=== PATIENT | female | born 1965 | race Caucasian/White ===

== ENCOUNTER 2016-05-12 07:09 | Day surgery (SDC) | payer OTHER ==
[2016-05-10 11:08] VITALS: BMI 42.5
[~2016-05-12 07:09] MED LIST: LACTATED RINGERS 1,000 ML IV SCH
[2016-05-12 07:26] VITALS: TEMP 97.1
[2016-05-12] MEDS ORDERED: GLYCOPYRROLATE 0.2 MG/ML 2 ML VIAL ONE (08:32)
[2016-05-12] MEDS ORDERED: PROPOFOL 10 MG/ML 20 ML VIAL IV ONE (08:32)
[2016-05-12] MEDS ORDERED: LIDOCAINE 1% INJ 10MG/ML (20 ML MDV) ONE (08:32)
[2016-05-12 09:13] VITALS: RESP 18
--- NOTE | 2016-05-12 09:15 | P.PCN ---
Date of Procedure: 05/12/16 Procedure(s) Performed: Procedures: 1. Esophagogastroduodenoscopy and biopsy. 2. Total colonoscopy. Preoperative diagnosis: Abdominal pain, change in bowel habits and episodes of diverticulitis in February of last year. Postoperative diagnosis: 1. Hiatal hernia and low-grade distal esophagitis. 2. Mild gastritis and duodenitis. 3. Diffuse diverticulosis. Preparation: HalfLytely prep. Sedation: Was provided by anesthesia. Brief clinical history: The patient is a 50-year-old female who I have evaluated in the office last month after a recent bout of diverticulitis demonstrated on CT that she had in the emergency room in February 2016. The patient was already done with her antibiotics but was still in pain and her bowel movements were changing constantly. She reported that she has had pains for almost a year and missed lots of water. This evaluation is to assess for complicated diverticular disease or other pathology. Procedure: With the patient on her left lateral decubitus position and after informed consent and adequate sedation, I passed the Olympus-GIF 160 video upper endoscope through the cricopharyngeus down the esophagus. GE junction was around 36 cm from the incisors and there was a small sliding hiatal hernia. The esophagus showed a short linear erosion or 2 terminating at the GE junction consistent with low-grade distal esophagitis. There were no strictures or Marcum's esophagus or any ulcers or other findings. The endoscope was then passed into the stomach which was insufflated with air and inspected in detail including the retroflex view in the cardia. Finally, the endoscope was passed through the pylorus into the duodenum. There were no pyloric channel ulcers or duodenal ulcers. Both the stomach and duodenum showed some mottling and erythema consistent with mild gastritis and duodenitis. I obtained multiple biopsies from the duodenum, antrum and esophagus then the endoscope was withdrawn and I proceeded with the colonoscopy. Perianal area did not show any fissures or fistulas. There were no masses felt on digital rectal examination. The Olympus CFQ 160L video colonoscope was then inserted in the rectum in the usual fashion and advanced to the cecum. There was diffuse diverticulosis noted but the mucosa otherwise appeared healthy. There was no strictures. No polyps or tumors were seen or other pathology. I retroflexed the endoscope in the rectum before the endoscope was withdrawn. Low -grade internal hemorrhoids were noted but there was no bleeding. The patient tolerated the procedure well. Plan: The patient was reassured. Discussed dietary measures. Further plans will be made based on her course and biopsy results. I will keep you updated on her progress.
[2016-05-12 09:31] VITALS: BP 120/73; PULSE 69
== END 2016-05-12 10:01 | disposition home or self-care (01) ==
LOC: ORWHC2ENDO 07:09
DX: K29.50 Unspecified chronic gastritis without bleeding (principal); K29.80 Duodenitis without bleeding; K20.0 Eosinophilic esophagitis; K44.9 Diaphragmatic hernia without obstruction or gangrene; K57.30 Diverticulosis of large intestine without perforation or abscess without bleeding; K64.8 Other hemorrhoids; J45.909 Unspecified asthma, uncomplicated; Z79.899 Other long term (current) drug therapy; Z88.5 Allergy status to narcotic agent
CPT/HCPCS: 81025; 88305; 88342; 45378; 43239; J2001; J2704; 99153

== ENCOUNTER 2016-05-18 12:37 | Emergency (ER) | payer OTHER ==
[2016-05-18 12:43] VITALS: TEMP 99
[2016-05-18] MEDS ORDERED: HYDROmorphone 1 MG/ML 1 ML SYRINGE IVP STA (13:05)
[2016-05-18] MEDS ORDERED: SODIUM CHLORIDE 0.9% 1,000 ML IV STA (13:05)
[2016-05-18] MEDS ORDERED: ONDANSETRON 4 MG/2 ML VIAL IVP STA (13:05)
[2016-05-18] MEDS ORDERED: KETOROLAC 30 MG/ML 1 ML VIAL IVP STA (13:05)
--- NOTE | 2016-05-18 13:12 | ED ---
General Adult HPI - General Chief complaint: Abdominal Pain Stated complaint: LRQ Pain Time Seen by Provider: 05/18/16 12:45 Source: patient, RN notes reviewed Mode of arrival: ambulatory Limitations: no limitations - History of Present Illness Initial comments: This is a 50-year-old female who presents to the emergency department complaining of right-sided flank pain. Patient states it started this morning when she woke up after about 3 hours pain became excruciating and radiating down into her inguinal canal region. Patient states the pain is intermittent. It never goes away but it gets considerably worse at times. Patient denies any nausea vomiting or diarrhea. Patient denies any chest pain or difficulty breathing. Patient denies any back pain. Patient denies any dysuria or hematuria urinary frequency. Patient denies any recent fever or chills. Patient denies any similar symptoms in the past. Patient denies any pain with movement of the hip or leg patient denies any back pain - Related Data Home Medications Medication Instructions Recorded Confirmed Montelukast [Singulair] 10 mg PO HS 09/05/13 05/18/16 Albuterol Sulfate [Proair Hfa] 1 puff INHALATION RT-Q6H PRN 03/02/16 05/18/16 Naproxen Sodium [Aleve] 440 mg PO ONCE PRN 05/18/16 05/18/16 Previous Rx's Medication Instructions Recorded Ciprofloxacin HCl [Cipro] 500 mg PO Q12HR #20 tablet 05/18/16 Hydrocodone/Acetaminophen [Berwick 1 each PO Q4HR PRN #20 tab 05/18/16 5-325] Ibuprofen [Motrin] 600 mg PO Q6HR PRN #20 tab 05/18/16 Allergies Allergy/AdvReac Type Severity Reaction Status Date / Time codeine AdvReac Vomiting Verified 05/18/16 13:00 Review of Systems ROS Statement: Those systems with pertinent positive or pertinent negative responses have been documented in the HPI. ROS Other: All systems not noted in ROS Statement are negative. Past Medical History Past Medical History: Asthma Additional Past Medical History / Comment(s): chronic back pain, bout of diverticulitis in , still w/intermittent abd pain, alternating bouts of diarrhea, constipation History of Any Multi-Drug Resistant Organisms: None Reported Past Surgical History: Bariatric Surgery, Section, Joint Replacement, Orthopedic Surgery, Tonsillectomy, Uterine Ablation Additional Past Surgical History / Comment(s): lap band, right hip replaced, right ankle ORIF Past Anesthesia/Blood Transfusion Reactions: No Reported Reaction Past Psychological History: No Psychological Hx Reported Smoking Status: Never smoker Past Alcohol Use History: None Reported Past Drug Use History: None Reported - Past Family History Father Family Medical History: Cancer General Exam - General Exam Comments Initial Comments: GENERAL: Patient is well-developed and well-nourished. Patient is nontoxic and well- hydrated and is in moderate distress. ENT: Neck is soft and supple. No significant lymphadenopathy is noted. Oropharynx is clear. Moist mucous membranes. Neck has full range of motion without eliciting any pain. EYES: The sclera were anicteric and conjunctiva were pink and moist. Extraocular movements were intact and pupils were equal round and reactive to light. Eyelids were unremarkable. PULMONARY: Unlabored respirations. Good breath sounds bilaterally. No audible rales rhonchi or wheezing was noted. CARDIOVASCULAR: There is a regular rate and rhythm without any murmurs gallops or rubs. ABDOMEN: Soft and nontender with normal bowel sounds. No palpable organomegaly was noted. There is no palpable pulsatile mass. SKIN: Skin is clear with no lesions or rashes and otherwise unremarkable. NEUROLOGIC: Patient is alert and oriented x3. Cranial nerves II through XII are grossly intact. Motor and sensory are also intact. Normal speech, volume and content. Symmetrical smile. MUSCULOSKELETAL: Normal extremities with adequate strength and full range of motion. No lower extremity swelling or edema. No calf tenderness. Patient has no tenderness when you move the right leg. LYMPHATICS: No significant lymphadenopathy is noted PSYCHIATRIC: Normal psychiatric evaluation. Normal interpersonal interactions appears functionally intact in deals appropriately with others. No signs of depression. No signs of anxiety. Limitations: no limitations Course Vital Signs 05/18/16 05/18/16 05/18/16 12:40 13:30 14:21 Temperature 99 F Pulse Rate 84 56 L 69 Respiratory 20 17 14 Rate Blood Pressure 188/95 179/79 127/72 O2 Sat by Pulse 98 98 98 Oximetry 05/18/16 16:54 Temperature Pulse Rate 74 Respiratory 15 Rate Blood Pressure 188/77 O2 Sat by Pulse 96 Oximetry Medical Decision Making - Medical Decision Making CT abdomen pelvis shows no acute abnormality. Ultrasound showed no acute abnormality. I spoke with the patient extensively that she could be admitted but she wanted to go home and come back if there was any further problems. Patient has not had only minimal pain in the last 3 hours. - Lab Data Result diagrams: 05/18/16 13:35 05/18/16 13:35 Lab Results 05/18/16 05/18/16 05/18/16 Range/Units 13:35 13:35 14:25 WBC 9.8 (3.8-10.6) k/uL RBC 4.67 (3.80-5.40) m/uL Hgb 14.7 (11.4-16.0) gm/dL Hct 43.5 (34.0-46.0) % MCV 93.1 (80.0-100.0) fL MCH 31.5 (25.0-35.0) pg MCHC 33.8 (31.0-37.0) g/dL RDW 13.6 (11.5-15.5) % Plt Count 314 (150-450) k/uL Neutrophils % 80 % Lymphocytes % 12 % Monocytes % 5 % Eosinophils % 1 % Basophils % 1 % Neutrophils # 7.9 H (1.3-7.7) k/uL Lymphocytes # 1.1 (1.0-4.8) k/uL Monocytes # 0.5 (0-1.0) k/uL Eosinophils # 0.1 (0-0.7) k/uL Basophils # 0.1 (0-0.2) k/uL Sodium 141 (137-145) mmol/L Potassium 4.6 (3.5-5.1) mmol/L Chloride 106 (98-107) mmol/L Carbon Dioxide 22 (22-30) mmol/L Anion Gap 13 mmol/L BUN 12 (7-17) mg/dL Creatinine 0.61 (0.52-1.04) mg/dL Est GFR (MDRD) Af Amer >60 (>60 ml/min/1.73 sqM) Est GFR (MDRD) Non-Af >60 (>60 ml/min/1.73 sqM) Glucose 95 (74-99) mg/dL Calcium 9.3 (8.4-10.2) mg/dL Total Bilirubin 0.5 (0.2-1.3) mg/dL AST 21 (14-36) U/L ALT 16 (9-52) U/L Alkaline Phosphatase 63 (38-126) U/L Total Protein 7.5 (6.3-8.2) g/dL Albumin 4.3 (3.5-5.0) g/dL Amylase 42 (30-110) U/L Lipase 44 (23-300) U/L Urine Color Yellow Urine Appearance Cloudy H (Clear) Urine pH 7.0 (5.0-8.0) Ur Specific [place] 1.012 (1.001-1.035) Urine Protein Negative (Negative) Urine Glucose (UA) Negative (Negative) Urine Ketones Negative (Negative) Urine Blood Small H (Negative) Urine Nitrate Negative (Negative) Urine Bilirubin Negative (Negative) Urine Urobilinogen <2.0 (<2.0) mg/dL Ur Leukocyte Esterase Small H (Negative) Urine RBC 2 (0-5) /hpf Urine WBC 8 H (0-5) /hpf Ur Squamous Epith Cells 2 (0-4) /hpf Urine Bacteria Rare H (None) /hpf Urine Mucus Moderate H (None) /hpf Disposition Clinical Impression: Flank pain Disposition: HOME SELF-CARE Instructions: Flank Pain (ED) Prescriptions: Ciprofloxacin HCl [Cipro] 500 mg PO Q12HR #20 tablet Hydrocodone/Acetaminophen [Berwick 5-325] 1 each PO Q4HR PRN #20 tab PRN Reason: Pain Ibuprofen [Motrin] 600 mg PO Q6HR PRN #20 tab PRN Reason: For pain Referrals: Natalie Mcdaniel MD [Primary Care Provider] - 1-2 days Time of Disposition: 17:08
--- NOTE | 2016-05-18 13:58 | XR ---
EXAMINATION TYPE: XR KUB DATE OF EXAM: 05/18/2016 1:49 PM CLINICAL HISTORY: Generalized abdominal pain since this morning. TECHNIQUE: 2 upright KUB images of the abdomen are obtained. COMPARISON: Abdominal x-ray and CT abdomen and pelvis March 02, 2016. FINDINGS: Lap band is redemonstrated and stable in appearance and position. Scattered gas is seen in non-distended small bowel loops. Gas and fecal material is seen in non-distended colon. The lung ba ses are clear. No pneumoperitoneum is identified. Metallic hardware from right hip arthroplasty is re demonstrated. Facet arthropathy lower lumbar spine is seen. IMPRESSION: Overall nonobstructive bowel gas pattern. No significant change from prior.
--- NOTE | 2016-05-18 14:08 | CT ---
EXAMINATION TYPE: CT abdomen pelvis wo con DATE OF EXAM: 05/18/2016 1:59 PM COMPARISON: Previous study dated 03/02/2016. TECHNIQUE: Helical acquisition through the abdomen and pelvis was obtained without oral or intravenou s contrast. The data was reformatted in axial, coronal and sagittal projections. HISTORY: Pelvic pain CT DLP: 1047.8 mGycm Automated exposure control for dose reduction was used. FINDINGS: FINDINGS: Visualized portions of the lungs are clear. There is no pleural or pericardial fluid. There is a lap band in place. There is a mature pouch. Within the abdomen, the liver, spleen and gallbladder appear normal. Both adrenal glands appear normal. There is no evidence of nephrolithiasis or hydronephrosis. Limited views of the pancreas are normal. There is no significant retroperitoneal, iliac or inguinal adenopathy. The bladder is unremarkable. The uterus and left ovary appear normal. The right ovary is not visualized with certainty. There is moderate diverticular change within the sigmoid colon. There is no radiographic evidence of diverticulitis. The appendix is normal. There is no free fluid and no free air identified. There is a right hip prosthesis in place. There is hypertrophic spondylosis within the spine. There i s moderately severe facet arthropathy in the lower 2 lumbar facets. There are vacuum phenomena in bot h SI joints. No no bony destructive lesion is seen. IMPRESSION: 1. STATUS POST LAP BAND. 2. NORMAL APPENDIX. 3. NO EVIDENCE OF NEPHROLITHIASIS OR HYDRONEPHROSIS. 4. UNCOMPLICATED DIVERTICULOSIS OF THE SIGMOID COLON. 5. DEGENERATIVE CHANGES WITHIN THE SPINE.
[2016-05-18 14:26] LABS: Basophils # (A) 0.1 k/uL (0-0.2); Basophils % (A) 1 %; CH 31.5; Eosinophils # (A) 0.1 k/uL (0-0.7); Eosinophils % (A) 1 %; HCT 43.5 % (34.0-46.0); HDW 2.32; HGB 14.7 gm/dL (11.4-16.0); Luc # (Auto) 0.11; Luc % (Auto) 1; Lymphocytes # (A) 1.1 k/uL (1.0-4.8); Lymphocytes % (A) 12 %; MCH 31.5 pg (25.0-35.0); MCHC 33.8 g/dL (31.0-37.0); MCV 93.1 fL (80.0-100.0); Mean Platelet Volume 8.2; Monocytes # (A) 0.5 k/uL (0-1.0); Monocytes % (A) 5 %; Neutrophils # (A) 7.9 k/uL (1.3-7.7); Neutrophils % (A) 80 %; RBC 4.67 m/uL (3.80-5.40); RDW 13.6 % (11.5-15.5); WBC 9.8 k/uL (3.8-10.6)
[2016-05-18 14:37] LABS: ALT 16 U/L (9-52); AST 21 U/L (14-36); Alkaline Phosphatase 63 U/L (38-126); Amylase 42 U/L (30-110); Anion Gap 13 mmol/L; Blood Urea Nitrogen 12 mg/dL (7-17); Calcium 9.3 mg/dL (8.4-10.2); Carbon Dioxide 22 mmol/L (22-30); Chloride 106 mmol/L (98-107); Glucose 95 mg/dL (74-99); Non-African American GFR(MDRD) >60 (>60 ml/min/1.73 sqM); Potassium 4.6 mmol/L (3.5-5.1); Sodium 141 mmol/L (137-145); Total Bilirubin 0.5 mg/dL (0.2-1.3); Total Protein 7.5 g/dL (6.3-8.2)
[2016-05-18 14:42] LABS: Appearance,Urine Cloudy (Clear); Bacteria,Urine Rare /hpf; Bilirubin,Urine Negative (Negative); Glucose,Urine (UA) Negative (Negative); Ketones,Urine Negative (Negative); Leukocyte Esterase,Urine Small (Negative); Mucus,Urine Moderate /hpf; Nitrite,Urine Negative (Negative); Particle Count 7362; Protein,Urine Negative (Negative); RBC,Urine 2 /hpf (0-5); Specific Gravity,Urine 1.012 (1.001-1.035); Squamous Epithelial Cell,Urine 2 /hpf (0-4); UA Billing (MACRO vs. MICRO) MICRO; Urobilinogen,Urine <2.0 mg/dL (<2.0); WBC,Urine 8 /hpf (0-5)
--- NOTE | 2016-05-18 16:27 | US ---
EXAMINATION TYPE: US transvaginal DATE OF EXAM: 05/18/2016 3:58 PM COMPARISON: NONE CLINICAL HISTORY: Pain. RLQ pain TECHNIQUE: Date of LMP: 8 years ago, patient had an ablation EXAM MEASUREMENTS: Uterus: 7.7 x 4.5 x 5.0 cm Endometrial Stripe: 0.4 cm Right Ovary: 1.7 x 0.9 x 1.3 cm Left Ovary: 1.5 x 0.9 x 1.1 cm TECHNOLOGIST IMPRESSION: morbidly obese patient 1. Uterus: Anteverted heterogeneous 2. Endometrium: measures 0.4 cm, patient has had ablation 3. Right Ovary: wnl 4. Left Ovary: wnl Spectral, color and waveform doppler imaging shows good arterial and venous flow within the ovaries ; there is no evidence for ovarian torsion. 5. Bilateral Adnexa: wnl 6. Posterior cul-de-sac: no free fluid IMPRESSION: SLIGHT HETEROGENEITY OF THE UTERUS MAY REFLECT ADENOMYOMATOSIS. NO OTHER ABNORMALITY IS SEEN.
[2016-05-18 16:55] VITALS: BP 188/77; PULSE 74; RESP 15
== END 2016-05-18 17:40 | disposition home or self-care (01) ==
LOC: EC 12:37
DX: R10.31 Right lower quadrant pain (principal); Z79.899 Other long term (current) drug therapy; J45.909 Unspecified asthma, uncomplicated; Z88.5 Allergy status to narcotic agent; Z98.84 Bariatric surgery status
CPT/HCPCS: 96374; 96375 ×2; 99284; 36415; 80053; 82150; 83690; 85025; 81001; 74000; 93975; 76830; 74176; J2405; J1885; J1170

== ENCOUNTER → 2016-10-05 | Outpatient (CLI) | payer OTHER ==
--- NOTE | 2016-10-05 15:25 | XR ---
EXAMINATION TYPE: XR shoulder complete RT DATE OF EXAM: 10/05/2016 COMPARISON: NONE HISTORY: 51 year-old female right shoulder pain for 3 months TECHNIQUE: 3 views FINDINGS: Moderate degenerative joint space narrowing with marginal spurring and capsular hypertrophy at the ac romioclavicular joint. There is bony irregularity and sclerosis at the greater tuberosity. No acute f racture, subluxation, or dislocation. Visualized right hemithorax is clear. IMPRESSION: 1. Moderate AC joint osteoarthrosis. 2. Bony changes compatible with underlying chronic rotator cuff tendinopathy. 3. No acute osseous abnormality seen.
== END | disposition home or self-care (01) ==
LOC: RADXRMAIN 14:54
PROVIDERS: ATTEND Internal Medicine
DX: M19.011 Primary osteoarthritis, right shoulder (principal)

== ENCOUNTER → 2017-04-04 | Outpatient (CLI) | payer OTHER ==
--- NOTE | 2017-04-04 14:49 | XR ---
EXAMINATION TYPE: XR knee complete LT DATE OF EXAM: 04/04/2017 COMPARISON: NONE HISTORY: Pain TECHNIQUE: Four views are submitted. FINDINGS: Severe arthropathy and hypertrophic change of the medial compartment of the knee joint and patellofem oral joint.. Osseous structures are intact. No acute fracture seen. IMPRESSION: 1. Severe osteoarthritis.
== END ==
LOC: RADXRYALE 14:28
PROVIDERS: ATTEND Internal Medicine
DX: M17.12 Unilateral primary osteoarthritis, left knee (principal)

== ENCOUNTER → 2023-03-24 | Outpatient (CLI) | payer OTHER ==
--- NOTE | 2023-03-25 18:10 | CTL ---
EXAMINATION TYPE: CT Low Dose Lung DATE OF EXAM: 03/24/2023 4:55 PM CLINICAL INDICATION:Female, 57 years old with history of Z12.2 Lung cancer screening; Current social smoker, used to smoke a pack a day x 25 years , history of tobacco use. COMPARISON: None. TECHNIQUE: Multiple axial non-contrast scans were obtained from approximately the lung apices through the upper abdomen. Coronal and sagittal reformatted images were obtained. Low dose technique was uti lized. CT DLP: 87.3 mGycm, Automated exposure control for dose reduction was used. CT Contrast: Contrast used: None Oral contrast used: None FINDINGS: ======== Lack of intravenous contrast and low dose technique limits the evaluation of the vascular and soft ti ssue structures. LUNGS: No evidence of pulmonary fibrosis. No evidence of focal consolidation, pneumothorax or pleural effusion. Mild centrilobular emphysema changes are seen throughout the lungs. Nodules: RUL: None. RML: None. RLL: None. LORETA: None. LLL: None. AIRWAY: Patent and unremarkable. HEART: Size within normal limits. MEDIASTINUM: No gross evidence of adenopathy. VASCULATURE: No aortic aneurysm. MUSCULOSKELETAL: No acute osseous abnormalities SOFT TISSUES/LYMPH NODES: Unremarkable. LOWER NECK: No significant findings. UPPER ABDOMEN: No significant findings. IMPRESSION: 1. No clinically significant pulmonary nodules. 2. Mild emphysema. 3. Gastric lap band CT LUNG RAD AND CT CHEST RECOMMENDATION: Lung-Rad 1 Negative: Continue annual screening with LDCT in 12 months. S Modifier (other clinically significant findings): None Recommend smoking cessation (if current smoker), or continuation of smoking cessation (if prior smoke r). Annual screening for lung cancer with low-dose computed tomography is recommended in adults ages 55 to 77 years who have a 30 pack-year smoking history and currently smoke or have quit within the pa st 15 years. Screening should be discontinued once a person has not smoked for 15 years or develops a health problem that substantially limits life expectancy or the ability or willingness to have curat juana lung surgery. Lung rads 2021 [email or web address]
== END | disposition home or self-care (01) ==
LOC: RADCTMAIN 16:39
PROVIDERS: ATTEND Family Medicine
DX: Z12.2 Encounter for screening for malignant neoplasm of respiratory organs (principal); J43.2 Centrilobular emphysema; Z87.891 Personal history of nicotine dependence; Z98.84 Bariatric surgery status
CPT/HCPCS: 71271

== ENCOUNTER 2023-09-28 03:44 | Emergency (ER) | payer OTHER ==
[2023-09-28 03:50] VITALS: TEMP 97.9
[2023-09-28] MEDS: ONDANSETRON 4 MG/2 ML VIAL IVP STA (04:42)
[2023-09-28] MEDS: HYDROmorphone 1 MG/ML 1 ML SYRINGE IVP STA (04:43)
[2023-09-28] MEDS: KETOROLAC 15 MG/ML 1 ML VIAL IVP STA (04:44)
[2023-09-28] MEDS: SODIUM CHLORIDE 0.9% 1,000 ML IV STA (04:48)
[2023-09-28] MEDS: ACETAMINOPHEN TAB 500 MG TAB PO STA (04:49)
[2023-09-28] MEDS: KETOROLAC 15 MG/ML 1 ML VIAL IM STA (04:49)
[2023-09-28] MEDS: PROPOFOL 10 MG/ML 20 ML VIAL IV STA (05:27)
[2023-09-28] MEDS: KETAMINE 10 MG/ML 20 ML VIAL IV ONE (05:54)
--- NOTE | 2023-09-28 06:13 | ED ---
General Adult HPI - General Chief complaint: Extremity Injury, Upper Stated complaint: fall Time Seen by Provider: 09/28/23 04:20 Source: patient, RN notes reviewed, old records reviewed Mode of arrival: ambulatory Limitations: no limitations - History of Present Illness Initial comments: Patient is a 58-year-old female presents emergency department complaining of right shoulder pain. Patient tripped over her dog shortly prior to arrival and fell into the wall. Has been complaining of right shoulder pain since. No other obvious injuries. Did not hit her head. No loss conscious. Presents for further evaluation at this time. - Related Data Home Medications Medication Instructions Recorded Confirmed Montelukast [Singulair] 10 mg PO HS 09/05/13 05/18/16 Albuterol Sulfate [Proair Hfa] 1 puff INHALATION RT-Q6H PRN 03/02/16 05/18/16 Naproxen Sodium [Aleve] 440 mg PO ONCE PRN 05/18/16 05/18/16 Previous Rx's Medication Instructions Recorded Ciprofloxacin HCl [Cipro] 500 mg PO Q12HR #20 tablet 05/18/16 Hydrocodone/Acetaminophen [[place] 1 each PO Q4HR PRN #20 tab 05/18/16 5-325] Ibuprofen [Motrin] 600 mg PO Q6HR PRN #20 tab 05/18/16 Allergies Allergy/AdvReac Type Severity Reaction Status Date / Time codeine AdvReac Vomiting Verified 09/28/23 03:49 Review of Systems ROS Statement: Those systems with pertinent positive or pertinent negative responses have been documented in the HPI. Review of Systems: CONST: Denies fever EYES: Denies blurry vision ENT: Denies nasal congestion C/V: Denies Chest pain RESP: Denies shortness of breath GI: Denies abdominal pain : Denies dysuria SKIN: Denies rash. MSK: Endorses right shoulder pain NEURO: Denies headache ROS Other: All systems not noted in ROS Statement are negative. Past Medical History Past Medical History: Asthma Additional Past Medical History / Comment(s): chronic back pain, bout of d iverticulitis in , still w/intermittent abd pain, alternating bouts of diarrhea, constipation History of Any Multi-Drug Resistant Organisms: None Reported Past Surgical History: Bariatric Surgery, Section, Joint Replacement, Orthopedic Surgery, Tonsillectomy, Uterine Ablation Additional Past Surgical History / Comment(s): lap band, right hip replaced, right ankle ORIF Past Anesthesia/Blood Transfusion Reactions: No Reported Reaction Past Psychological History: No Psychological Hx Reported Past Alcohol Use History: None Reported Past Drug Use History: None Reported - Past Family History Father Family Medical History: Cancer General Exam - General Exam Comments Initial Comments: General: Appears in moderate distress. HEAD: Normal with no signs of head trauma. EYES: EOMI. ENT: Hearing grossly intact. RESPIRATORY: No respiratory distress. C/V: Regular rate and rhythm. ABD: Abdomen is nondistended. EXT: Right shoulder tenderness to palpation with decreased range of motion. Tenderness seems to extend towards the chest wall. Neurovascular intact. SKIN: No rashes or lesions observed on exposed skin. NEURO: Alert and oriented. Limitations: no limitations Course Vital Signs 09/28/23 09/28/23 09/28/23 03:47 05:24 05:27 Temperature 97.9 F Pulse Rate 82 71 100 Respiratory 20 18 16 Rate Blood Pressure 167/90 172/92 166/142 O2 Sat by Pulse 96 96 97 Oximetry 09/28/23 09/28/23 09/28/23 05:30 05:39 05:45 Temperature Pulse Rate 69 69 73 Respiratory 19 19 20 Rate Blood Pressure 173/108 153/93 150/89 O2 Sat by Pulse 98 97 90 L Oximetry 09/28/23 09/28/23 09/28/23 06:00 06:15 06:30 Temperature Pulse Rate 61 61 61 Respiratory 19 15 14 Rate Blood Pressure 144/74 134/75 131/74 O2 Sat by Pulse 94 L 95 95 Oximetry 09/28/23 06:45 Temperature Pulse Rate 61 Respiratory 16 Rate Blood Pressure 133/81 O2 Sat by Pulse 95 Oximetry Procedures - [place] Protocol (Time Out) Procedure Performed:: R Shoulder reduction Performing Provider: Baldomero Jean Nurse: Alejandra Brewster Patient Identification (2 identifiers required): Verbal, Arm Band, Name, Birthdate Patient/Legal Human Resources Administrator has Confirmed: Identity, Site, Procedure, Consent Site: R shoulder Site Marked: No Site Verified With Patient/Guardian: Yes Final Confirmation: Procedure - Orthopedic Joint Reduction Joint #1 Consent Obtained: written consent Side: right Joint Reduction Location: shoulder Analgesia: procedural sedation Shoulder Technique Used (if applicable): traction/counter-traction Post-Reduction Neuro Exam: intact Post-Reduction Vascular Exam: intact Post Reduction X-Ray Obtained: Yes Post Reduction X-Ray Results: reduced Additional Comments: Neurovascularly intact following the procedure. - Procedural Sedation *Procedural Sedation Start Time: 05:24 *Procedural Sedation Stop Time: 05:39 *Risks,benefits, and alternative therapies discussed?: Yes *Patient indicates understanding of risk/benefit discussion?: Yes *Indications: fracture/dislocation reduction *Previous Adverse Reaction to Anesthesia/Sedation?: No * Testing Complete?: No Reason Test Not Complete:: Post-menopausal *ASA Class: I *Mallampati Airway Score: 2 *Time of Last PO Intake: 18:00 Preparation: fly fishing guide applied, pulse oximeter, capnometry used, supplemental O2 applied, suction/airway equipment at bedside, IV secured Ketamine: IV Ketamine Dose: 50 IV Propofol Dose (mgs): 50 Complications: none Patient Tolerated Procedure: well Medical Decision Making - Medical Decision Making Was pt. sent in by a medical professional or institution (, PA, END WORKER, urgent care, hospital, or fci...) When possible be specific @ -No Did you speak to anyone other than the patient for history (EMS, parent, family, police, friend...)? What history was obtained from this source @ -No Did you review nursing and triage notes (agree or disagree)? Why? @ -I reviewed and agree with nursing and triage notes Were old charts reviewed (outside hosp., previous admission, EMS record, old EKG, old radiological studies, urgent care reports/EKG's, fci records)? Report findings @ -No old charts were reviewed Differential Diagnosis (chest pain, altered mental status, abdominal pain women, abdominal pain men, vaginal bleeding, weakness, fever, dyspnea, syncope, headache, dizziness, GI bleed, back pain, seizure, CVA, palpatations, mental health, musculoskeletal)? @ -Differential Musculoskeletal Muscular strain, contusion, ligament sprain, fracture, arthritis, septic arthritis, bursitis, cellulitis, muscle spasm, nerve compression, DVT, arterial occlusion, herpes zoster, electrolyte abnormality, tumor.... This is not meant to be in all inclusive list EKG interpreted by me (3pts min.). @ -None done X-rays interpreted by me (1pt min.). @ -Chest and shoulder x-ray reveals a dislocated right shoulder. Initial attempt with just Dilaudid as analgesia unsuccessful to reduce. Second attempt show successful reduction of right shoulder. CT interpreted by me (1pt min.). @ -None done U/S interpreted by me (1pt. min.). @ -None done What testing was considered but not performed or refused? (CT, X-rays, U/S, labs)? Why? @ -None What meds were considered but not given or refused? Why? @ -None Did you discuss the management of the patient with other professionals (professionals i.e. , PA, END WORKER, lab, RT, psych nurse, protective services social worker, colorer machine, teacher, loss prevention officer, case loader operator)? Give summary @ -No Was smoking cessation discussed for >3mins.? @ -No Was critical care preformed (if so, how long)? @ -No Were there social determinants of health that impacted care today? How? (Homelessness, low income, unemployed, alcoholism, drug addiction, transportation, low edu. Level, literacy, decrease access to med. care, usp, rehab)? @ -No Was there de-escalation of care discussed even if they declined (Discuss DNR or withdrawal of care, Hospice)? DNR status @ -No What co-morbidities impacted this encounter? (DM, HTN, Smoking, COPD, CAD, Cancer, CVA, ARF, Chemo, Hep., AIDS, mental health diagnosis, sleep apnea, morbid obesity)? @ -None Was patient admitted / discharged? Hospital course, mention meds given and route, prescriptions, significant lab abnormalities, going to OR and other pertinent info. @ -Patient presents with right shoulder pain after a fall. X-rays show that it is subluxed. Vital signs within acceptable limits. No obvious fractures. Patient initially administered analgesia medications with attempt at reduction with no success. Therefore patient required procedural sedation. She tolerated it well. Please see additional note for further details. Successful reduction of the right shoulder subluxation. Patient placed in a shoulder immobilizer. She will be discharged home at this time. Strict return precautions discussed. I instructed the patient to follow up with their PCP in the next 1-3 days. I provided contact information for follow up with orthopedics. I explained that the patient should return to the emergency department if they experience any worsening symptoms. Strict return precautions were discussed with the patient. The patient expressed understanding of these instructions. I answered all questions that the patient had. The patient was discharged home in good condition with their prescriptions and follow up information. Undiagnosed new problem with uncertain prognosis? @ -No Drug Therapy requiring intensive monitoring for toxicity (Heparin, Nitro, Insulin, Cardizem)? @ -No Were any procedures done? @ -Procedural sedation, reduction of dislocated right shoulder Diagnosis/symptom? @ -Fall, right shoulder dislocation Acute, or Chronic, or Acute on Chronic? @ -Acute Uncomplicated (without systemic symptoms) or Complicated (systemic symptoms)? @ -Uncomplicated Side effects of treatment? @ -No Exacerbation, Progression, or Severe Exacerbation? @ -No Poses a threat to life or bodily function? How? (Chest pain, [place], [place], pneumonia, PE, COPD, DKA, ARF, appy, cholecystitis, CVA, Diverticulitis, Homicidal, Suicidal, threat to staff... and all critical care pts) @ -No Disposition Clinical Impression: Dislocation of right shoulder joint Disposition: HOME SELF-CARE Condition: Good Instructions (If sedation given, give patient instructions): Shoulder Dislocation (ED), Moderate Sedation (ED) Is patient prescribed a controlled substance at d/c from ED?: No Referrals: Luis Mera MD [Primary Care Provider] - 1-2 days Morris Rabago MD [Medical Doctor] - 1-2 days Time of Disposition: 06:12
--- NOTE | 2023-09-28 06:24 | XR ---
EXAM: XR Right Shoulder Complete, 2 or More Views CLINICAL HISTORY: ITS.REASON XR Reason: right shoulder/upper rib pain TECHNIQUE: Two or more views of the right shoulder. COMPARISON: No relevant prior studies available. FINDINGS: Bones/joints: Anterior dislocation about the shoulder. Mild degenerative change about the acromioclavicular joint, again seen. Suspect spur along the undersurface of the acromion. No gross acute fracture. Soft tissues: Unremarkable. IMPRESSION: 1. Anterior shoulder dislocation. 2. Mild arthritic change
--- NOTE | 2023-09-28 06:25 | XR ---
EXAM: XR Right Shoulder Complete, 2 or More Views CLINICAL HISTORY: ITS.REASON XR Reason: TRAUMA TECHNIQUE: Single frontal view of the right shoulder. COMPARISON: Film obtained earlier the same day. FINDINGS: Bones/joints: Persistent anterior dislocation about the glenohumeral joint. No gross acute fracture. Soft tissues: Unremarkable. IMPRESSION: Anterior shoulder dislocation, again seen
--- NOTE | 2023-09-28 06:27 | XR ---
EXAM: XR Right Shoulder Complete, 2 or More Views CLINICAL HISTORY: ITS.REASON XR Reason: POST REDUCTION TECHNIQUE: Two or more views of the right shoulder. COMPARISON: Film obtained earlier the same day. FINDINGS: Bones/joints: Degenerative change about the acromioclavicular joint. Glenohumeral joint appear satisfactory in position. High riding glenohumeral joint, nonspecific. This may reflect chronic rotator cuff injury. Recommend correlation and follow-up as indicated. No gross acute fracture. No dislocation. Soft tissues: Unremarkable. IMPRESSION: 1. Satisfactory position status post reduction. 2. Mild arthritic change. 3. High riding glenohumeral joint
--- NOTE | 2023-09-28 06:29 | XR ---
EXAM: XR Chest, 1 View CLINICAL HISTORY: ITS.REASON XR Reason: right shoulder/upper rib pain TECHNIQUE: Frontal view of the chest. COMPARISON: 11/24/12 FINDINGS: Lungs: Slight prominent lung markings, likely due to technique. No dense consolidation. Pleural space: Unremarkable. No pneumothorax. Heart: Unremarkable. No cardiomegaly. Mediastinum: Unremarkable. Normal mediastinal contour. Bones/joints: Dislocation about the right shoulder seen. No acute fracture. IMPRESSION: 1. No acute pulmonary disease. 2. Right shoulder dislocation
[2023-09-28 07:18] VITALS: BP 137/74; PULSE 75; RESP 19
== END 2023-09-28 07:18 | disposition home or self-care (01) ==
LOC: EC 03:44
DX: S43.004A Unspecified dislocation of right shoulder joint, initial encounter (principal); Z88.5 Allergy status to narcotic agent; W01.0XXA Fall on same level from slipping, tripping and stumbling without subsequent striking against object, initial encounter; W22.01XA Walked into wall, initial encounter
CPT/HCPCS: 73020; 71045; 23650; 99152; 99284; 96374; 96375 ×2; 96361; J2405; J1170; J1885; J2704

== ENCOUNTER 2023-09-29 09:19 | Emergency (ER) | payer OTHER ==
[2023-09-29] MEDS: HYDROmorphone 1 MG/ML 1 ML SYRINGE IM STA (09:47)
[2023-09-29] MEDS: ONDANSETRON ODT 4 MG TAB PO STA (09:48)
[2023-09-29] MEDS: ONDANSETRON 4 MG/2 ML VIAL IVP STA (09:49)
[2023-09-29] MEDS: HYDROmorphone 1 MG/ML 1 ML SYRINGE IVP STA (10:08)
--- NOTE | 2023-09-29 10:37 | ED ---
Upper Extremity HPI <Augustine Breaux - Last Filed: 09/29/23 11:24> - General Source: patient, RN notes reviewed Mode of arrival: wheelchair Limitations: no limitations - History of Present Illness MD Complaint: Injury to:: right, shoulder <Lucy Alcaraz - Last Filed: 09/29/23 16:28> - General Chief Complaint: Extremity Injury, Upper Stated Complaint: R Shoulder Pain Time Seen by Provider: 09/29/23 09:31 - History of Present Illness Initial Comments: This is a 58-year-old female who presents to the emergency department for right shoulder pain. Patient was evaluated here yesterday after a trip and fall causing a dislocation of the right shoulder. States that they initially attempted reduction with pain medication. The shoulder was reduced but then went out of place again. She then underwent conscious sedation and the shoulder was successfully reduced. She was discharged home with a shoulder immobilizer, but took it off when she went to bed. States that when she woke up, believes that her shoulder moved out of place again, as she developed severe pain. She sleeps with her arms under her pillow and believes that this maneuver contributed to this. Prior to this injury, she has never had a shoulder dislocation. (Lucy Alcaraz) - Related Data Home Medications Medication Instructions Recorded Confirmed Montelukast [Singulair] 10 mg PO HS 09/05/13 05/18/16 Albuterol Sulfate [Proair Hfa] 1 puff INHALATION RT-Q6H PRN 03/02/16 05/18/16 Naproxen Sodium [Aleve] 440 mg PO ONCE PRN 05/18/16 05/18/16 Previous Rx's Medication Instructions Recorded Ciprofloxacin HCl [Cipro] 500 mg PO Q12HR #20 tablet 05/18/16 Hydrocodone/Acetaminophen [[place] 1 each PO Q4HR PRN #20 tab 05/18/16 5-325] Ibuprofen [Motrin] 600 mg PO Q6HR PRN #20 tab 05/18/16 Allergies Allergy/AdvReac Type Severity Reaction Status Date / Time codeine AdvReac Vomiting Verified 09/29/23 09:28 Review of Systems ROS Other: All systems not noted in ROS Statement are negative. <Augustine Breaux - Last Filed: 09/29/23 11:24> ROS Other: All systems not noted in ROS Statement are negative. <Lucy Alcaraz - Last Filed: 09/29/23 16:28> ROS Statement: Those systems with pertinent positive or pertinent negative responses have been documented in the HPI. Past Medical History Past Medical History: Asthma Additional Past Medical History / Comment(s): chronic back pain, bout of diverticulitis in Dec., still w/intermittent abd pain, alternating bouts of diarrhea, constipation History of Any Multi-Drug Resistant Organisms: None Reported Past Surgical History: Bariatric Surgery, Section, Joint Replacement, Orthopedic Surgery, Tonsillectomy, Uterine Ablation Additional Past Surgical History / Comment(s): lap band, right hip replaced, right ankle ORIF Past Anesthesia/Blood Transfusion Reactions: No Reported Reaction Past Psychological History: No Psychological Hx Reported Smoking Status: Current every day smoker Past Alcohol Use History: None Reported Past Drug Use History: Marijuana - Past Family History Father Family Medical History: Cancer <Lucy Alcaraz - Last Filed: 09/29/23 16:28> General Exam Limitations: no limitations General appearance: alert, in no apparent distress Head exam: Present: atraumatic, normocephalic, normal inspection Respiratory exam: Present: normal lung sounds bilaterally. Absent: respiratory distress, wheezes, rales, rhonchi, stridor Cardiovascular Exam: Present: regular rate, normal rhythm, normal heart sounds. Absent: systolic murmur, diastolic murmur, rubs, gallop, clicks Extremities exam: Present: other (Deformity to the right shoulder. 2+ radial pulses.) Neurological exam: Present: alert, oriented X3, CN II-XII intact Psychiatric exam: Present: normal affect, normal mood Skin exam: Present: warm, dry, intact, normal color. Absent: rash <Lucy Alcaraz - Last Filed: 09/29/23 16:28> Course Vital Signs 09/29/23 09/29/23 09/29/23 09:26 11:03 11:06 Temperature 98.1 F Pulse Rate 76 57 L 56 L Respiratory 18 18 18 Rate Blood Pressure 180/85 185/86 191/76 O2 Sat by Pulse 97 96 96 Oximetry 09/29/23 09/29/23 09/29/23 11:07 11:10 11:15 Temperature Pulse Rate 70 55 L 56 L Respiratory 18 16 18 Rate Blood Pressure 120/86 124/80 129/85 O2 Sat by Pulse 98 98 97 Oximetry 09/29/23 09/29/23 09/29/23 11:20 11:31 12:13 Temperature 97.2 F L Pulse Rate 68 54 L 58 L Respiratory 18 18 17 Rate Blood Pressure 145/98 140/79 133/84 O2 Sat by Pulse 98 96 95 Oximetry Procedures - Orthopedic Joint Reduction Joint #1 Consent Obtained: written consent Side: right Joint Reduction Location: shoulder Shoulder Technique Used (if applicable): traction/counter-traction Post-Reduction Neuro Exam: intact Post-Reduction Vascular Exam: intact Post Reduction X-Ray Obtained: Yes Post Reduction X-Ray Results: reduced Splint Applied: No (Shoulder immobilizer was applied) Patient Tolerated Procedure: well - Procedural Sedation *Procedural Sedation Start Time: 11:07 *Procedural Sedation Stop Time: 11:35 *Risks,benefits, and alternative therapies discussed?: Yes *Patient indicates understanding of risk/benefit discussion?: Yes *Indications: fracture/dislocation reduction *Previous Adverse Reaction to Anesthesia/Sedation?: No * Testing Complete?: No Reason Test Not Complete:: Emergent Situation *ASA Class: II *Mallampati Airway Score: 2 Preparation: personnel monitor applied, pulse oximeter, capnometry used, supplemental O2 applied IV Propofol Dose (mgs): 200 Complications: none Interventions: assist by BVM Patient Tolerated Procedure: well <Augustine Breaux - Last Filed: 09/29/23 11:24> Medical Decision Making - Radiology Data Radiology results: report reviewed, image reviewed <Lucy Alcaraz - Last Filed: 09/29/23 16:28> - Medical Decision Making This is a 58-year-old female who presents to the emergency department for right shoulder pain. Was pt. sent in by a medical professional or institution? @ -No Did you speak to anyone other than the patient for history? @ -No Did you review nursing and triage notes? @ -Yes, and I agree, it is accurate with regards to the patient's symptoms. Were old charts reviewed? @ -No Differential Diagnosis? @ -Differential Musculoskeletal: Muscular strain, contusion, ligament sprain, fracture, arthritis, septic arthritis, bursitis, cellulitis, muscle spasm, nerve compression, DVT, arterial occlusion, herpes zoster, electrolyte abnormality, tumor.... This is not meant to be in all inclusive list EKG interpreted by me (3pts min.)? @ -Not obtained X-rays interpreted by me (1pt min.)? @ -X-ray of the right shoulder obtained. My interpretation identifies an anterior shoulder dislocation. Postreduction x-ray obtained. My interpretation identifies satisfactory reduction. CT interpreted by me (1pt min.)? @ -Not obtained U/S interpreted by me (1pt. min.)? @ -Not obtained What testing was considered but not performed? (CT, X-rays, U/S, labs)? Why? @ -None What meds were considered but not given? Why? @ -None Did you discuss the management of the patient with other professionals? @ -No Did you reconcile home meds? @ -No Was smoking cessation discussed for >3mins.? @ -No Was critical care preformed (if so, how long)? @ -No Were there social determinants of health that impacted care today? How? (Homelessness, low income, unemployed, alcoholism, drug addiction, transportation, low edu. Level, literacy, decrease access to med. care, fci, rehab)? @ -No Was there de-escalation of care discussed even if they declined? (Discuss DNR or withdrawal of care, Hospice)? @ -No What co-morbidities impacted this encounter? (DM, HTN, Smoking, COPD, CAD, Cancer, CVA, Hep., AIDS, mental health diagnosis, sleep apnea, morbid obesity)? @ -None Was patient admitted / discharged? @ -Discharged. X-ray of the right shoulder obtained demonstrating anterior subcoracoid and glenohumeral joint dislocation. There is also suggestion of a small Hill-Sachs impaction injury. Additionally, there is an underlying chronic full-thickness rotator cuff tear suspected contributing to the shoulder instability and dislocation. Conscious sedation performed with the ED attending, Dr. Breaux. Propofol was used and the shoulder was successfully reduced. Postreduction x-rays demonstrate interval satisfactory reduction of the joint. Shoulder immobilizer reapplied. Patient was monitored following conscious sedation until she returned to baseline. Patient advised that she needs to leave the shoulder immobilizer on, as this could pop out of place again. She is also advised that she needs to contact orthopedics after discharge for a follow-up appointment. Undiagnosed new problem with uncertain prognosis? @ -None Drug Therapy requiring intensive monitoring for toxicity (Heparin, Nitro, In sulin, Cardizem)? @ -None Were any procedures done? @ -Reduction of right shoulder dislocation and conscious sedation Diagnosis/symptom? @ -Right shoulder dislocation Acute, or Chronic, or Acute on Chronic? @ -Acute Uncomplicated (without systemic symptoms) or Complicated (systemic symptoms)? @ -Uncomplicated Side effects of treatment? @ -None Exacerbation, Progression, or Severe Exacerbation] @ -Not applicable Poses a threat to life or bodily function? @ -This may limit her use of the right upper extremity for the mean time. Return precautions reviewed in depth, the patient is instructed to return to the emergency department with any new, worsening, or concerning symptoms. Patient verbalized understanding. This case was discussed in detail with the attending ED physician, Dr. Breaux. Presentation, findings, and treatment plan discussed in detail as well. (Lucy Alcaraz) Disposition <Augustine Breaux - Last Filed: 09/29/23 11:24> Is patient prescribed a controlled substance at d/c from ED?: No Time of Disposition: 11:55 <Lucy Alcaraz - Last Filed: 09/29/23 16:28> Clinical Impression: Dislocation of right shoulder joint Disposition: HOME SELF-CARE Instructions (If sedation given, give patient instructions): Shoulder Dislocation (ED), Moderate Sedation (ED), Closed Reduction (ED) Additional Instructions: Return to the emergency department with any new, worsening, or concerning symptoms. Make sure you keep the shoulder immobilizer on, even when sleeping. Contact orthopedics after discharge today for a follow-up appointment. Referrals: Luis Mera MD [Primary Care Provider] - 1-2 days Morris Rabago MD [Medical Doctor] - 1-2 days
[2023-09-29] MEDS: KETOROLAC 15 MG/ML 1 ML VIAL IVP STA (10:39)
[2023-09-29] MEDS: HYDROmorphone 0.5 MG/0.5 ML SYRINGE IVP STA (10:40)
--- NOTE | 2023-09-29 10:54 | XR ---
EXAMINATION TYPE: XR shoulder complete 3 views RT DATE OF EXAM: 09/29/2023 Comparison: 09/28/2023 Clinical History: 58-year-old female severe shoulder pain after Injury Findings: Mild degenerative change AC joint. Prominent inferior acromial spurring. Rounded contour of the great er tuberosity with degenerative spurring at the humeral head. There is an anterior subcoracoid should er dislocation with possible small Hill-Sachs deformity. Impression: Anterior subcoracoid glenohumeral joint dislocation. Suggestion of a small Hill-Sachs impaction injur y. The patient's underlying chronic full-thickness rotator cuff tear likely contributed to the should er instability and dislocation. Additional changes of chronic rotator cuff arthropathy.
[2023-09-29] MEDS: PROPOFOL 10 MG/ML 20 ML VIAL IV ONE ×2 (11:08→11:10)
--- NOTE | 2023-09-29 11:48 | XR ---
EXAMINATION TYPE: XR shoulder limited RT DATE OF EXAM: 09/29/2023 COMPARISON: Earlier today HISTORY: 58-year-old female postreduction exam TECHNIQUE: AP view FINDINGS: Interval satisfactory reduction of the glenohumeral joint. There are remaining superior sub luxation and loss of the subacromial space. Degenerative changes glenohumeral joint. Mild degenerativ e change at the joint. IMPRESSION: Interval satisfactory reduction of the glenohumeral joint. However, there is underlying rotator cuff arthropathy and chronic shoulder instability. Recommend orthopedic referral.
[2023-09-29 12:18] VITALS: BP 133/84; PULSE 58; RESP 17; TEMP 97.2
== END 2023-09-29 12:18 | disposition home or self-care (01) ==
LOC: EC 09:19
DX: S43.004A Unspecified dislocation of right shoulder joint, initial encounter (principal); W01.0XXA Fall on same level from slipping, tripping and stumbling without subsequent striking against object, initial encounter; F17.200 Nicotine dependence, unspecified, uncomplicated; Z88.5 Allergy status to narcotic agent
CPT/HCPCS: 99284; 23650; 96374; 96375; 96372; 73020; 73030; 99152; 99153; L3670; J1170 ×2; J1885; J2704